=== PATIENT | female | born 1975 | race Caucasian/White ===

== ENCOUNTER 2018-04-27 08:25 | Day surgery (SDC) | payer OTHER ==
[2018-04-27 08:33] LABS: Urine Appearance CLEAR; Urine Bilirubin NEGATIVE (NEG); Urine Blood NEGATIVE (NEG); Urine Color YELLOW; Urine Glucose NEGATIVE (NEG); Urine Protein NEGATIVE (NEG); Urine Urobilinogen 0.2 mg/dL (0.2-1.0)
--- NOTE | 2018-04-27 08:33 | RAD REPORT ---
EXAM DESCRIPTION: RAD - Chest Pa And Lat (2 Views) - 04/27/2018 8:20 am CLINICAL HISTORY: Preop chest, pending breast surgery in COMPARISON: None. TECHNIQUE: PA and lateral views of the chest were obtained. FINDINGS: The lungs are clear. Posterior costophrenic angle blunting is present. Pleural fluid is u nlikely given the absence of any acute respiratory symptoms. Heart size is normal and central vascula ture is within normal limits. No pneumothorax. No acute bony finding noted. No aortic abnormality. IMPRESSION: No acute cardiopulmonary process.
[2018-04-27 08:35] LABS: Urine Microscopic Reflex NO UMIC
[2018-04-27 08:35] LABS: Absolute Lymphocytes (CBC) 1.7 K/uL (0.7-4.9); Absolute Monocytes 0.3 K/uL (0.1-1.3); Eosinophils % 1.4 % (0-4.4); Hematocrit 41.4 % (36.0-45.0); Lymphocytes % 41.9 % (15.3-44.8); RBC Red Blood Cell Count 4.41 M/uL (3.86-4.86)
[2018-04-27] MEDS ORDERED: SCOPOLAMINE HYDROBROMIDE PATCH TD ONE (08:51)
[2018-04-27] MEDS ORDERED: Ringers Lactate 1,000 ML IV ONE ×3 (08:58→15:25)
[2018-04-27] MEDS ORDERED: CEFAZOLIN/SWI 1gm 0 GM/0 ML SYR ONE (08:58)
[2018-04-27] MEDS ORDERED: Mastisol Adhesive Liq ONE (09:27)
[2018-04-27] MEDS ORDERED: GENTAMICIN SULF 80 MG/2ML INJ ONE (09:27)
[2018-04-27] MEDS ORDERED: CEFAZOLIN/SWI 1gm 1 GM/10 ML SYR ONE (09:28)
[2018-04-27] MEDS ORDERED: BACITRACIN 50000 UNIT VIAL ONE (09:28)
[2018-04-27] MEDS ORDERED: CEFAZOLIN SODIUM 1 GM/VIAL ONE (09:29)
[2018-04-27] MEDS ORDERED: NS 0.9% VIAL 20 ML ONE (09:29)
[2018-04-27] MEDS ORDERED: VECURONIUM 10 MG/VIAL IV ONE (09:55)
[2018-04-27] MEDS ORDERED: PROPOFOL 200 MG/20 ML VIAL IV ONE (10:16)
[2018-04-27] MEDS ORDERED: ROCURONIUM 50 MG/5 ML VIAL IV ONE (10:18)
[2018-04-27] MEDS ORDERED: LIDOCAINE 2% MPF 5 ML VIAL ONE (10:19)
[2018-04-27] MEDS ORDERED: GLYCOPYRROLATE 0.2 MG/ML SYR ONE (10:19)
[2018-04-27] MEDS ORDERED: FENTANYL CITR 250 MCG/5 ML ONE (10:20)
[2018-04-27] MEDS ORDERED: MIDAZOLAM HCL 2 MG/2 ML INJ ONE (10:20)
[2018-04-27] MEDS ORDERED: ONDANSETRON 4 MG/2 ML VIAL ONE (10:22)
[2018-04-27] MEDS ORDERED: NEOSTIGMINE 1 MG/ML -10 ML VIAL ONE (10:22)
[2018-04-27] MEDS ORDERED: LIDOCAINE JELLY 2%- 5 ML TUBE ONE (10:22)
[2018-04-27] MEDS: Ringers Lactate 1,000 ML IV ONE ×2 (12:00→12:22)
[2018-04-27] MEDS ORDERED: EPHEDRINE SULF 50 MG/ML VIAL ONE (12:13)
[2018-04-27] MEDS ORDERED: DEXAMETHASONE 10 MG/ML VIAL ONE (12:19)
[2018-04-27] MEDS ORDERED: KETOROLAC 30 MG/ML INJ ONE ×2 (12:20→14:41)
[2018-04-27] MEDS ORDERED: MEPERIDINE HCL 25 MG/0.5 ML ONE ×2 (13:25→13:54)
[2018-04-27] MEDS: HYDROMORPHONE HCL 2 MG/ML inj ONE ×3 (15:07→15:18)
[2018-04-27] MEDS ORDERED: HYDROCODONE/APAP 7.5/325 MG TAB ONE (16:35)
--- NOTE | 2018-04-27 21:19 | EKG ---
Test Date: 2018-04-27 Test Time: 08:07:01 Director Medical Safety: PAT MEASUREMENT RESULTS: Intervals: Rate: 59 NC: 164 QRSD: 92 QT: 460 QTc: 455 [place]: P: 23 NC: 164 QRS: 79 T: 36 INTERPRETIVE STATEMENTS: Sinus bradycardia with sinus arrhythmia Otherwise normal ECG No previous ECG available for comparison Electronically Signed On 04-27-18 21:18:00 CDT by Jc Torres
--- NOTE | 2018-04-28 00:42 | OP ---
Date of Procedure: 04/27/2018 Surgeon: Gray Levy MD Order Caller: Compa. Preoperative Diagnoses: Breast descent and enlargement. Postoperative Diagnoses: Breast descent and enlargement. Procedure Performed: Lift, reduction. Anesthesia: General. Procedure In Detail: After satisfactory induction of general anesthesia, the chest was prepped with DuraPrep. Dry sterile drapes were applied in usual manner. A 45 template was used to outline the ri ght and left areola. The transverse curvilinear inferior incision was made. The intervening skin wa s de-epithelized with EpiCut or dermabrader. A cephalad incision was made full-thickness with scalpe l and electrocautery. Flaps were elevated towards the sternum, clavicle, and anterior axillary line. Then, the inferior incision was made with the de-epithelialized tissue formed into a cone after tis jarred resected laterally. This was done with 2-0 PDS sutures. Then, straps were elevated at 12 o'cloc k, 1:30, and 3 o'clock on the right breast, mirror image on the left. The straps were then woven in and out of pectoralis major muscle, back to the base of the cone, back to the pectoral muscle, and ba ck to the base of the cone, sewn to themselves with 2-0 PDS. A 3 o'clock strap was sewn over from th e 3 o'clock position with 2-0 Ethibond. Left side was done in mirror manner. The wound was then mary sed. The BROOKE drain 10-[place] was brought out the axilla and sewn in place with 2-0 silk. The wound w as closed in layers with 3-0 Vicryl, subcu with 3-0 PDS in running subcuticular, tied in the vertical meridian of the breast. The patient was sat up. Site for new nipple-areolar complex was marked out and the tissue was excised. Nipple was delivered and sewn with interrupted 4-0 PDS followed by 4-0 PDS running subcuticular. Dressings consisted of tincture of benzoin, Steri-Strips, 5 x 5's, fluffs, and Rafael wrap. The patient tolerated the procedure well. Amount removed from the right breast was 150 g, left was 110 g . GH/MODL Voice ID: [id number] Report ID: [id number]
== END 2018-04-27 17:35 | disposition home or self-care (01) ==
LOC: OR 08:25
PROVIDERS: ATTEND Specialist
PROC: 0HSXXZZ Reposition Left Nipple, External Approach (ICD-10-PCS; 2018-04-27)
PROC: 0HSWXZZ Reposition Right Nipple, External Approach (ICD-10-PCS; 2018-04-27)
PROC: 0H0V0ZZ Alteration of Bilateral Breast, Open Approach (ICD-10-PCS; principal; 2018-04-27 09:00)
DX: N62 Hypertrophy of breast (principal); N64.81 Ptosis of breast
CPT/HCPCS: 36415; 71046; 81003; 81025; 85025; 88305; 93005; J0690; J1100; J1170; J1580; J2175; J2250; J2405; J2704; J2710; J3010